=== PATIENT | male | born 1990 | race Caucasian/White ===

== ENCOUNTER 2023-01-16 11:19 | Emergency (ER) | payer BC ==
[~2023-01-16] VITALS: Ht 177.8 cm; Wt 76.2 kg
[2023-01-16 11:55] LABS: *BILIRUBIN,URIN NEGATIVE (NEGATIVE); *BLOOD, URINE NEGATIVE (NEGATIVE); *CLARITY,URINE CLEAR (CLEAR); *COLOR,URINE YELLOW (YELLOW); *KETONES,URINE NEGATIVE (NEGATIVE); *PROTEIN,URINE NEGATIVE (NEGATIVE); *UROBILINOGEN,URINE 0.2 E.U./dl (NORMAL); LEUKOCYTE ESTERASE ,URINE NEGATIVE (NEGATIVE); NITRITE, URINE NEGATIVE (NEGATIVE); PH,URINE 6.5 (5.0-8.0); UGLUCOSE NEGATIVE (NEGATIVE)
[2023-01-16] MEDS ORDERED: IV NORMAL SALINE 1000 ML BAG IV ONE (12:00)
[2023-01-16 12:15] LABS: BASOPHILS # (AUTO) 0.1 K/UL (0.0-0.2); BASOPHILS % (AUTO) 1.4 % (0.0-2.0); EOSINOPHILS # (AUTO) 0.1 K/uL (0.0-0.7); EOSINOPHILS % (AUTO) 1.5 % (0.0-7.0); HEMATOCRIT 48.3 % (36.7-47.1); HEMOGLOBIN 16.4 g/dL (12.5-16.3); LYMPHOCYTES # (AUTO) 0.7 K/uL (0.8-4.8); LYMPHOCYTES % (AUTO) 10.4 % (20.5-51.5); MEAN CORPUSCULAR HEMOGLOBIN 30.1 uug (23.8-33.4); MEAN CORPUSCULAR HGB CONC 34 g/dL (32.5-36.3); MEAN CORPUSCULAR VOLUME 88.8 fL (73.0-96.2); MONOCYTES # (AUTO) 0.2 K/uL (0.1-1.30); MONOCYTES % (AUTO) 2.9 % (0.0-11.0); NEUTROPHILS # (AUTO) 5.6 K/uL (1.8-8.9); NEUTROPHILS % (AUTO) 83.8 % (38.5-71.5); PLATELET COUNT (AUTO) 134 K/uL (152-348); RED BLOOD CELL COUNT(AUTO) 5.44 MIL/uL (4.06-5.63); RED CELL DISTRIBUTION WIDTH 13.2 % (12.1-16.2); WHITE BLOOD COUNT (AUTO) 6.7 K/uL (3.6-10.2)
[2023-01-16] MEDS ORDERED: METOCLOPRAMIDE HCL 10 MG/2 ML VIAL IV ONE (12:15)
[2023-01-16 12:18] LABS: DIFFERENTIAL COMMENT 1
[2023-01-16] MEDS ORDERED: IBUPROFEN 600 MG TABLET ONE (12:22)
[2023-01-16] MEDS ORDERED: IBUPROFEN 600 MG TABLET PO ONE (12:45)
[2023-01-16 12:52] LABS: CHLORIDE 101 mmol/L (98-107); POTASSIUM 3.9 mmol/L (3.5-5.1); SODIUM SERUM 140 mmol/L (136-145)
[2023-01-16 12:53] LABS: BILIRUBIN,DIRECT 0.2 mg/dL (0.0-0.2); BILIRUBIN,TOTAL 0.7 mg/dL (0.2-1.0); CALCIUM 9.5 mg/dL (8.5-10.1); GLUCOSE 115 mg/dL (74-106); UREA NITROGEN, BLOOD 15 mg/dL (7-18)
[2023-01-16 12:54] LABS: ALANINE AMINOTRANSFERASE 67 U/L (16-63); ALBUMIN 4.6 g/dL (3.4-5.0); ALKALINE PHOSPHATASE 81 U/L (50-136); ASPARTATE AMINOTRANSFERASE 22 U/L (15-37); TOTAL PROTEIN, SERUM 8.3 g/dL (6.4-8.2)
[2023-01-16 13:11] LABS: CARBON DIOXIDE 25 mmol/L (21-32)
[2023-01-16] MEDS ORDERED: NAPR-1164 PO (13:23)
[2023-01-16] MEDS ORDERED: MECL-159 PO (13:23)
[2023-01-16 13:39] VITALS: BP 120/72; O2SAT 99
== END 2023-01-16 13:40 | disposition home or self-care (01) ==
LOC: ER 11:19
DX: R42 Dizziness and giddiness (principal); E86.0 Dehydration; R07.89 Other chest pain; G43.909 Migraine, unspecified, not intractable, without status migrainosus; Z79.899 Other long term (current) drug therapy
CPT/HCPCS: 36415; 71045; 84484; 85025; 93005; A4663